=== PATIENT | female | born 1985 | race Asian ===

== ENCOUNTER 2021-12-22 22:12 | Emergency (ER) | payer BC ==
[~2021-12-22] VITALS: Ht 157.5 cm; Wt 70.3 kg
[2021-12-22 22:17] VITALS: BP_SYST 116
--- NOTE | 2021-12-22 22:25 | NUR ---
PT HERE ACCOMPANIED C/O PELVIC/LOWER ABD PAIN SINCE 1900. PT STATED THAT SHE WAS ON OTHER FACILITY YESTERDAY NAD SENT HOME WITH DX OF OVARIAN CYST. DENIES N/V/D, DENIES DYSURIA, DENIES VAG BLEED. PMH:ASTHMA. PT AAOX4, NO SOB NOTED, PENDING MD DODGE
[2021-12-22 22:52] LABS: BASOPHILS # (AUTO) 0.1 K/uL (0.0-0.2); BASOPHILS % (AUTO) 0.7 % (0.0-2.0); EOSINOPHILS # (AUTO) 0.2 K/uL (0.0-0.4); EOSINOPHILS % (AUTO) 2.1 % (0.0-4.0); HEMATOCRIT 37.5 % (36-48); HEMOGLOBIN 12.6 g/dL (12.0-16.0); LYMPHOCYTES # (AUTO) 2.7 K/uL (1.0-5.5); LYMPHOCYTES % (AUTO) 35.7 % (20.5-51.5); MEAN CORPUSCULAR HEMOGLOBIN 28 pg (27-31); MEAN CORPUSCULAR HGB CONC 34 % (32-36); MEAN CORPUSCULAR VOLUME 84 fL (79.0-98.0); MONOCYTES # (AUTO) 0.7 K/uL (0.0-1.0); MONOCYTES % (AUTO) 8.7 % (1.7-9.3); NEUTROPHILS % (AUTO) 52.8 % (40.0-70.0); PLATELET COUNT (AUTO) 362 K/uL (130-430); RED BLOOD CELL COUNT(AUTO) 4.45 MIL/uL (4.2-6.2); WHITE BLOOD COUNT (AUTO) 7.6 K/uL (4.8-10.8)
[2021-12-22 23:02] LABS: CREATININE 0.75 mg/dL (0.55-1.30); POTASSIUM 3.3 mmol/L (3.5-5.1)
[2021-12-22 23:08] LABS: ALBUMIN 3.9 g/dL (3.4-4.8); TOTAL BILIRUBIN 0.2 mg/dL (0.0-1.0)
--- NOTE | 2021-12-22 23:40 | NUR ---
PT ASSISTED TO RM8 VIA WHEELCAHIR ACCOMPANIED BY FAMILY MEMBERM, REPORT GIVEN TO TAMMY BOATENG
[2021-12-22 23:44] LABS: BILIRUBIN,URINE NEGATIVE (NEGATIVE); BLOOD, URINE 2+ (NEGATIVE); COLOR,URINE YELLOW (YELLOW); GLUCOSE,URINE NEGATIVE (NEGATIVE); KETONES,URINE 1+ (NEGATIVE); LEUKOCYTE ESTERASE ,URINE NEGATIVE (NEGATIVE); NITRITE, URINE NEGATIVE (NEGATIVE); PH,URINE 7.5 (5.0-8.0); PROTEIN URINE NEGATIVE (NEGATIVE); UROBILINOGEN,URINE 0.2 (0.2-1.0)
[2021-12-22 23:47] LABS: CLARITY/URINE HAZY (CLEAR)
[2021-12-23 00:02] LABS: BACTERIA,URINE FEW /HPF (None Seen); MUCUS,URINE 1+ /LPF (None Seen); WBC,URINE 0-3 /HPF (0-3)
--- NOTE | 2021-12-23 00:24 | NUR ---
DR. MAR AT BEDSIDE.
[2021-12-23] MEDS ORDERED: PROCHLORPERAZINE EDISYLATE 10 MG/2 ML VIAL IM ONE (00:45)
[2021-12-23] MEDS ORDERED: KETOROLAC TROMETHAMINE 30 MG VIAL IM ONE (00:45)
[2021-12-23] MEDS ORDERED: MORPHINE SULFATE 10 MG/ML VIAL IM ONE (00:45)
[2021-12-23] MEDS ORDERED: NAPR-686 PO (01:55)
[2021-12-23 02:22] LABS: HCG,QUAL RESULT NEGATIVE (NEGATIVE)
[2021-12-23 02:27] VITALS: BP_SYST 107
--- NOTE | 2021-12-23 02:27 | NUR ---
Patient given written and verbal discharge instructions and verbalizes understanding. ER MD discussed with patient the results and treatment provided. Patient in stable condition. ID arm band removed. Rx of Naproxen given. Patient educated on pain management and to follow up with PMD. Pain Scale 4/10. Opportunity for questions provided and answered. Medication side effect fact sheet provided.
== END 2021-12-23 02:27 | disposition home or self-care (01) ==
LOC: SED 22:12
DX: R10.2 Pelvic and perineal pain (principal); Z87.42 Personal history of other diseases of the female genital tract; Z79.899 Other long term (current) drug therapy
CPT/HCPCS: 99284; 80053; 81000; 84703; 85025; 36415; 81025; 96372; J1885; J0780; J2270